=== PATIENT | male | born 1945 | race Caucasian/White ===

== ENCOUNTER → 2024-02-22 10:45 | Outpatient (REF) | payer MEDICARE, BC, SELFPAY | LOC: RCS 10:45 | PROVIDERS: ATTENDING PHYSICIAN Internal Medicine Cardiovascular Disease; FAMILY PHYSICIAN Family Medicine | DX: I50.22 Chronic systolic (congestive) heart failure (principal); I48.91 Unspecified atrial fibrillation | CPT/HCPCS: 93225; 93226; 93306 ==

== ENCOUNTER → 2024-04-24 10:00 | Outpatient (REF) | payer MEDICARE, BC, SELFPAY ==
[2024-04-24 10:58] LABS: Blood Urea Nitrogen 36 mg/dl (9-20); Calcium 9.7 mg/dl (8.4-10.2); Carbon Dioxide 25 mmol/L (22-30); Chloride 107 mmol/L (98-107); Glucose 89 mg/dl (70-99); Potassium 5.2 mmol/L (3.5-5.1); Sodium 143 mmol/L (135-145); eGFR > 60.00
[2024-04-24 11:06] LABS: NT-proBNP 2710 pg/ml
== END ==
LOC: REG 10:00
PROVIDERS: ATTENDING PHYSICIAN Internal Medicine Cardiovascular Disease; FAMILY PHYSICIAN Family Medicine
DX: I50.32 Chronic diastolic (congestive) heart failure (principal)
CPT/HCPCS: 36415; 80048; 83880

== ENCOUNTER → 2024-09-05 10:25 | Outpatient (REF) | payer MEDICARE, BC, SELFPAY ==
[2024-09-05 13:05] LABS: Blood Urea Nitrogen 29 mg/dl (9-20); Calcium 9.5 mg/dl (8.4-10.2); Carbon Dioxide 30 mmol/L (22-30); Chloride 102 mmol/L (98-107); Glucose 88 mg/dl (70-99); Potassium 5.4 mmol/L (3.5-5.1); Sodium 141 mmol/L (135-145); eGFR > 60.00
== END ==
LOC: REG 10:25
PROVIDERS: ATTENDING PHYSICIAN Internal Medicine Cardiovascular Disease; FAMILY PHYSICIAN Family Medicine
DX: I50.22 Chronic systolic (congestive) heart failure (principal)
CPT/HCPCS: 36415; 80048

== ENCOUNTER 2024-09-28 08:38 | Emergency (ER) | payer MEDICARE, BC, SELFPAY ==
[2024-09-28 08:41] VITALS: BP 150/69
[2024-09-28 09:06] LABS: Hematocrit 48.2 % (39.0-52.0); Hemoglobin 15.7 g/dL (13.0-18.0); Mean Corp Hgb Conc. 32.6 g/dL (33.0-37.0); Mean Corpuscular Volume 95.1 fL (80.0-94.0); Mean Platelet Volume 11.1 fL (7.4-10.4); Platelet Count 129 10^3/uL (130-400); Red Blood Cell Count 5.07 10^6/uL (4.70-6.10); Red Cell Dist. Width 13.7 % (11.5-14.5); White Blood Cell Count 4.7 10^3/uL (4.8-10.8)
[2024-09-28 09:22] LABS: ALT (SGPT) 45 U/L (0-50); AST (SGOT) 46 U/L (17-59); Albumin 4.3 g/dl (3.5-5.0); Alkaline Phosphatase 98 U/L (38-126); Blood Urea Nitrogen 24 mg/dl (9-20); Carbon Dioxide 26 mmol/L (22-30); Chloride 104 mmol/L (98-107); Glucose 103 mg/dl (70-99); Potassium 4.6 mmol/L (3.5-5.1); Sodium 139 mmol/L (135-145); Total Bilirubin 0.8 mg/dl (0.2-1.3); eGFR > 60.00
[2024-09-28 09:24] LABS: NT-proBNP 1380 pg/ml
[2024-09-28 09:27] LABS: % Basophils 1.3 % (0-2); % Eosinophils 6.4 % (0-6); % Immature Granulocytes 0.2 % (0-0.5); % Lymphocytes 50.9 % (20.5-51.1); % Monocytes 12.4 % (1.7-9.3); % Neutrophils 28.8 % (42.2-75.2); Absolute Basophils 0.1 10^3/uL (0-0.2); Absolute Eosinophils 0.3 10^3/uL (0-0.7); Absolute Lymphocytes 2.4 10^3/uL (1.2-3.4); Absolute Monocytes 0.6 10^3/uL (0.1-0.6); Absolute Neutrophils 1.4 10^3/uL (1.4-6.5); Nucleated Red Blood Cells % 0 % (-)
[2024-09-28 09:28] LABS: COVID-19 Antigen Negative (Negative)
--- NOTE | 2024-09-28 10:03 | ED.GENMED ---
History of Present Illness
General
Chief Complaint: Cold/Flu/URI Symptoms
Source: patient and spouse
Exam Limitations: none
Time Seen by Provider: 09/28/24 09:17
Nursing documentation reviewed up to this point in time: agreed with
History of Present Illness
History of Present Illness:
79-year-old male with history of A-fib, CHF, HTN, hypothyroid, cardiac stent in 2019 is here for cough, intermittent shortness of breath, sinus congestion, diarrhea 3 days ago but this has subsided as he is taking a probiotic, fever and chills 2
days ago, these have subsided. All symptoms started after attending his grandson's birthday republic[employer] where 5 people had the flu. He denies chest pain or abdominal pain.
Past History
Past History
ED Past Medical History: Arrthythmia (Atrial fibrillation) and CAD
ED Past Surgical History: Cardiac (Cardiac stent 2019)
Social History
Tobacco: Non-smoker
Personal:
Living: with family
Employment: Retired
Family History
Family History: Other (Noncontributory)
Review of Systems
Review of Systems
Allergies reviewed?: Yes
All Other Systems: ROS reviewed and negative except as documented in HPI and ROS
Constitutional: Reports fever (2 days ago, none today or yesterday)
EENT: Reports other (Sinus stuffiness); Denies sore throat
Respiratory: Reports cough and trouble breathing (Intermittently feels short of breath when he is trying to cough stuff up)
Cardiac: Denies chest pain
ABD/GI: Denies abdominal pain, nausea, vomiting or diarrhea (Diarrhea 3 days ago, none since)
: Denies dysuria or difficulty voiding
Musculoskeletal: Reports no symptoms
Skin: Reports no symptoms
Neurological: Reports no symptoms
Phy Exam
Physical Exam
Physical Exam:
GENERAL: No acute distress. A&Ox3.
CONSTITUTIONAL: Afebrile.
EYES: clear, conjunctivae normal
ENMT: moist mucus membranes, Pharynx nl
RESPIRATORY: Regular respirations, nonlabored, lungs clear.
CARDIOVASCULAR: Regular rate and rhythm, no murmurs, no rubs.
GI: Soft, nontender, normal BS
MUSCULOSKELETAL: Moves with ease. Well perfused.
SKIN: Warm, dry, pink
PSYCH: Normal mood and affect. Well kept, interactive and appropriate
NEUROLOGIC: Awake, alert and oriented. No focal neurological deficits
Course
Orders/Labs/Results
Orders:
Orders
09/28/24 08:48
CMP [Comprehensive Metabolic Panel] Urgent
COVID-19 Antigen Urgent
Source: Nasal Swab
Complete Blood Count/With Diff Urgent
NT-proBNP Urgent
Influenza A+B Rapid Molecular Urgent
NIDIA Source: Nasal Swab
Specimen Description:
09/28/24 10:02
CR Chest - 2 Views Urgent
Comment:
Reason For Exam: Cough, flu positive, hx chf, mi
Abnormal Lab Results
09/28/24
08:48
WBC 4.7 L 10^3/uL
(4.8-10.8)
MCV 95.1 H fL
(80.0-94.0)
MCHC 32.6 L g/dL
(33.0-37.0)
Plt Count 129 L 10^3/uL
(130-400)
MPV 11.1 H fL
(7.4-10.4)
Neutrophils % 28.8 L %
(42.2-75.2)
Monocytes % 12.4 H %
(1.7-9.3)
Eosinophils % 6.4 H %
(0-6)
BUN 24 H mg/dl
(9-20)
Glucose 103 H mg/dl
(70-99)
09/28/24 08:48
09/28/24 08:48
Vital Signs
Initial and Last Documented VS:
Initial Vital Signs
Temp Pulse Resp BP Pulse Ox
98.1 F 85 16 150/69 99
09/28/24 08:41 09/28/24 08:41 09/28/24 08:41 09/28/24 08:41 09/28/24 08:41
Last Documented Vital Signs
Temp Pulse Resp BP Pulse Ox
98.1 F 85 16 150/69 99
09/28/24 08:41 09/28/24 08:41 09/28/24 08:41 09/28/24 08:41 09/28/24 08:41
MDM/Problems Addressed
Differential Diagnosis Includes:
Covid, Flu, PNA, CHF
MDM/Problems Addressed:
79-year-old male with history of A-fib, CHF, HTN, hypothyroid, cardiac stent in 2019 is here for cough, intermittent shortness of breath, sinus congestion, diarrhea 3 days ago but this has subsided as he is taking a probiotic, fever and chills 2
days ago, these have subsided. All symptoms started after attending his grandson's birthday republic[employer] where 5 people had the flu. He denies chest pain
Afebrile, NAD
CBC, CMP unremarkable.
BNP 1380
Covid neg
Flu A positive
Out of window for Tamiflu
CXR:NAD
Pt os totally non toxic appearing, pleasant, talkative.
Stable for discharge
*Critical Care Note
Total Time (30-74mins, 75-104mins- exclusive of procedures): Not Applicable
ED Attending Note
-
Portions of this chart may have been created with voice recognition software.� Occasional wrong word or��sound alike� substitutions may have occurred due to the inherent limitations of voice recognition software.
Discharge Plan
Departure
Patient Disposition: Home (Routine Discharge)
Date of Disposition: 09/28/24
Time of Disposition: 10:20
Patient with high blood pressure during this ER visit?: No
Condition: Good
Covid-19: Negative COVID-19
Discharge Problem:
Influenza A
Instructions: Kaleaividaesin, Flu in adults - ED discharge instructions
Prescriptions:
No Action
atorvastatin 80 mg Tablet
80 mg PO DAILY
tramadol 50 mg Tablet
50 mg PO Q8H PRN (Reason: back pain)
levothyroxine 150 mcg Tablet
150 mcg PO DAILY
dabigatran etexilate [Pradaxa] 150 mg Capsule
150 mg PO BID
metoprolol succinate 25 mg Tablet Extended Release 24 Hr
12.5 mg PO DAILY
spironolactone 25 mg Tablet
25 mg PO DAILY 30 Days Qty: 30 0RF
Farxiga 10 mg Tablet
10 mg PO DAILY 30 Days Qty: 30 0RF
furosemide 40 mg Tablet
40 mg PO DAILY 30 Days Qty: 30 0RF
lisinopril 10 mg tablet
10 mg PO DAILY 30 Days Qty: 30 0RF
Referrals:
Rashad Infante, DO [Family Provider] - As needed
Activity Restrictions/Additional Instructions:
As we discussed, your workup here today shows that you have the flu A.
There is no sign of a heart attack or congestive heart failure.
You may try Mucinex for your chest congestion.
Interventions
Interventions:
*Risk Screen - Suicide Last Done: 09/28/24 08:41
*Neglect/Abuse Screening Last Done: 09/28/24 08:41
*Nursing Disposition Last Done: 09/28/24 11:29
Discharge Date and Time
Discharge Date/Time: 09/28/24 10:30
Print Language: YI
== END 2024-09-28 10:30 | disposition home or self-care (01) ==
LOC: EMR 08:38
PROVIDERS: EMERGENCY PHYSICIAN Emergency Medicine; FAMILY PHYSICIAN Family Medicine; REFERRING PHYSICIAN Internal Medicine Cardiovascular Disease
DX: J10.1 Influenza due to other identified influenza virus with other respiratory manifestations (principal); I48.91 Unspecified atrial fibrillation; I25.10 Atherosclerotic heart disease of native coronary artery without angina pectoris; E03.9 Hypothyroidism, unspecified; I11.0 Hypertensive heart disease with heart failure; I50.9 Heart failure, unspecified; I25.2 Old myocardial infarction; Z95.5 Presence of coronary angioplasty implant and graft
CPT/HCPCS: 99283; 71046; 80053; 83880; 85025; 87502; 87811

== ENCOUNTER → 2024-12-25 08:53 | Outpatient (REF) | payer MEDICARE, BC, SELFPAY ==
[2024-12-25 10:54] LABS: Blood Urea Nitrogen 35 mg/dl (9-20); Carbon Dioxide 27 mmol/L (22-30); Chloride 106 mmol/L (98-107); Glucose 91 mg/dl (70-99); Potassium 5.8 mmol/L (3.5-5.1); Sodium 143 mmol/L (135-145); eGFR 51.77
== END ==
LOC: REG 08:53
PROVIDERS: ATTENDING PHYSICIAN Internal Medicine Cardiovascular Disease
DX: E78.2 Mixed hyperlipidemia (principal)
CPT/HCPCS: 36415; 80048

== ENCOUNTER → 2025-02-03 09:56 | Outpatient (REF) | payer MEDICARE, BC, SELFPAY ==
[2025-02-03 11:27] LABS: Blood Urea Nitrogen 35 mg/dl (9-20); Calcium 9.6 mg/dl (8.4-10.2); Carbon Dioxide 26 mmol/L (22-30); Chloride 110 mmol/L (98-107); Glucose 87 mg/dl (70-99); Potassium 5.5 mmol/L (3.5-5.1); Sodium 144 mmol/L (135-145); eGFR > 60.00
== END ==
LOC: REG 09:56
PROVIDERS: ATTENDING PHYSICIAN Internal Medicine Cardiovascular Disease; FAMILY PHYSICIAN Family Medicine
DX: I50.22 Chronic systolic (congestive) heart failure (principal)
CPT/HCPCS: 36415; 80048

== ENCOUNTER 2025-02-16 08:01 | Emergency (ER) | payer MEDICARE, BC, SELFPAY ==
[2025-02-16 08:07] VITALS: BP 126/64
[2025-02-16 08:39] VITALS: BP 111/49
--- NOTE | 2025-02-16 08:57 | ED.GENMED ---
History of Present Illness
General
Chief Complaint: Blood Pressure Problem
Source: patient and spouse
Exam Limitations: none
Time Seen by Provider: 02/16/25 08:23
Nursing documentation reviewed up to this point in time: agreed with
History of Present Illness
History of Present Illness:
The patient is a 80-year-old male with a past medical history significant for a myocardial infarction approximately five years ago and heart failure about two years ago, presenting with reported elevated blood pressure readings this a.m. prior to
taking his BP meds. The patient reports his usual morning blood pressure is in the 120s/70s. However, on waking this morning, his reading was 140/70, later increasing to 190/70's. He reports no chest pain, no shortness of breath, nausea, vomiting,
or changes in bowel habits. The patient describes feeling generally unwell but without specific symptoms such as headache or vision changes. He feels tired but better now compared to earlier. The patient takes blood pressure measurements daily
before medication. He denies recent medication changes except for reduction in spironolactone to 12.5 mg daily. The patient follows a low-sodium, low-potassium diet.
Meds:
- Atorvastatin 80 mg daily
- Dabigatran 150 mg twice a day
- Furosemide 40 mg daily
- Dapagliflozin 10 mg daily
- Levothyroxine 137 mcg daily
- Metoprolol 25 mg daily
- Spironolactone 12.5 mg daily
- Aspirin 81 mg daily
- Sacubitril/valsartan 49-51 mg twice a day
- Multivitamin daily
Past History
Past History
ED Past Medical History: Arrthythmia (Atrial fibrillation), CAD and TN
ED Past Surgical History: Cardiac (Cardiac stent 2020)
Social History
Tobacco: Non-smoker
Alcohol: Occasional
Personal:
Living: with family
Employment: Retired
Family History
Family History: Other (Noncontributory)
Review of Systems
Review of Systems
Allergies reviewed?: Yes
All Other Systems: ROS reviewed and negative except as documented in HPI and ROS
Constitutional: Reports fatigue; Denies fever
Respiratory: Denies trouble breathing
Cardiac: Denies chest pain, diaphoresis or palpitations
ABD/GI: Denies abdominal pain, nausea, vomiting, diarrhea, constipated or anorexia
: Denies dysuria, frequency or difficulty voiding
Musculoskeletal: Reports no symptoms
Skin: Reports no symptoms
Neurological: Reports no symptoms
Phy Exam
Physical Exam
Physical Exam:
GENERAL: No acute distress. A&Ox3.
CONSTITUTIONAL: Afebrile.
EYES: clear, conjunctivae normal
ENMT: moist mucus membranes, Pharynx nl
RESPIRATORY: Regular respirations, nonlabored, lungs clear.
CARDIOVASCULAR: Regular rate and rhythm, no murmurs, no rubs.
GI: Soft, nontender, normal BS
MUSCULOSKELETAL: Moves with ease. Well perfused.
SKIN: Warm, dry, pink
PSYCH: Normal mood and affect. Well kept, interactive and appropriate
NEUROLOGIC: Awake, alert and oriented. No focal neurological deficits
Course
Orders/Labs/Results
Orders:
Orders
02/16/25 09:01
Electrocardiogram (*1) Urgent
Reason for Study: Fatigue / Weakness
EKG- Treatment ONCE
02/16/25 09:26
Complete Blood Count/With Diff Urgent
Comprehensive Metabolic Panel Urgent
Troponin I Urgent
Abnormal Lab Results
02/16/25
09:26
RBC 4.28 L 10^6/uL
(4.70-6.10)
MCV 96.7 H fL
(80.0-94.0)
MCH 32.2 H pg
(27.0-31.0)
Plt Count 129 L 10^3/uL
(130-400)
MPV 11.4 H fL
(7.4-10.4)
Absolute Lymphs (auto) 1.0 L 10^3/uL
(1.2-3.4)
Absolute Monos (auto) 0.7 H 10^3/uL
(0.1-0.6)
Lymphocytes % 17.1 L %
(20.5-51.1)
Monocytes % 10.8 H %
(1.7-9.3)
Chloride 109 H mmol/L
(98-107)
BUN 25 H mg/dl
(9-20)
Total Protein 6.2 L g/dl
(6.3-8.2)
02/16/25 09:26
02/16/25 09:26
Vital Signs
Initial and Last Documented VS:
Initial Vital Signs
Temp Pulse Resp BP Pulse Ox
98.5 F 74 18 126/64 96
02/16/25 08:07 02/16/25 08:07 02/16/25 08:07 02/16/25 08:07 02/16/25 08:07
Last Documented Vital Signs
Temp Pulse Resp BP Pulse Ox
98.5 F 74 18 104/47 95
02/16/25 08:07 02/16/25 08:07 02/16/25 08:07 02/16/25 11:00 02/16/25 11:30
MDM/Problems Addressed
Differential Diagnosis Includes:
The Differential Diagnosis includes, in no particular order and is not limited to:
- Hypertensive urgency
- Anxiety-induced elevation
- Dehydration
- Electrolyte imbalance
- Medication side effects
- Anemia
- Viral illness
- Cardiovascular event (myocardial infarction, angina)
MDM/Problems Addressed:
The patient is a 80-year-old male with a past medical history significant for a myocardial infarction approximately five years ago and heart failure about two years ago, presenting with reported elevated blood pressure readings this a.m. prior to
taking his BP meds. The patient reports his usual morning blood pressure is in the 120s/70s. However, on waking this morning, his reading was 140/70, later increasing to 190/70's. He reports no chest pain, no shortness of breath, nausea, vomiting,
or changes in bowel habits. The patient describes feeling generally unwell but without specific symptoms such as headache or vision changes. He feels tired but better now compared to earlier. The patient takes blood pressure measurements daily
before medication. He denies recent medication changes except for reduction in spironolactone to 12.5 mg daily. The patient follows a low-sodium, low-potassium diet.
Pt states he had no chest pain with his last TN. He did have SOB.
Denies any new medications
BP has normalized, NAD.
EKG a fib with slow ventricular response, HR 55
Plan includes obtaining basic blood work to check electrolytes, hemoglobin, and white blood cell count to investigate for possible anemia, infection, or dehydration. Will check EKG, Troponin to r/o TN, The patient is advised to continue monitoring
blood pressure at home and report any concerning changes. Per , anxiety considered a potential contributor to symptoms as he is scheduled to go to the of a good friend today.
10:15 a.m.
CBC with no clinically significant abnormality
Troponin WNL
CMP unremarkable
Pt stable for discharge. BP normal
Chronic conditions affecting care: HTN, CAD and Arrhythmia
*Pulse Oximetry
SaO2: 98
Oxygen Mode of Delivery: Room air
Patient hypoxic: no
*EKG
EKG Intrepretation Date: 02/16/25
Interpretation: abnormal
Heart Rate: 55
Rhythm: a-fib (with slow ventricular response)
[place]: normal axis
QRS Pattern: normal QRS
Ischemia: no ischemia
*Critical Care Note
Total Time (30-74mins, 75-104mins- exclusive of procedures): Not Applicable
ED Attending Note
-
Portions of this chart may have been created with voice recognition software.� Occasional wrong word or��sound alike� substitutions may have occurred due to the inherent limitations of voice recognition software.
Discharge Plan
Departure
Patient Disposition: Home (Routine Discharge)
Date of Disposition: 02/16/25
Time of Disposition: 11:40
Patient with high blood pressure during this ER visit?: No
Condition: Good
Discharge Problem:
Episode of hypertension
Prescriptions:
No Action
atorvastatin 80 mg Tablet
80 mg PO DAILY
tramadol 50 mg Tablet
50 mg PO Q8H PRN (Reason: back pain)
levothyroxine 150 mcg Tablet
150 mcg PO DAILY
dabigatran etexilate [Pradaxa] 150 mg Capsule
150 mg PO BID
metoprolol succinate 25 mg Tablet Extended Release 24 Hr
12.5 mg PO DAILY
spironolactone 25 mg Tablet
25 mg PO DAILY 30 Days Qty: 30 0RF
Farxiga 10 mg Tablet
10 mg PO DAILY 30 Days Qty: 30 0RF
furosemide 40 mg Tablet
40 mg PO DAILY 30 Days Qty: 30 0RF
lisinopril 10 mg tablet
10 mg PO DAILY 30 Days Qty: 30 0RF
Referrals:
Rashad Infante, DO [Family Provider, Family Practice] - As needed
Activity Restrictions/Additional Instructions:
As we discussed, your workup here today shows nothing worrisome.
See your doctor for recheck if you are not 100% back to feeling normal within the next 2 to 3 days.
Interventions
Interventions:
*Risk Screen - Suicide Last Done: 02/16/25 08:37
*General Assessment Last Done: 02/16/25 08:37
*Neglect/Abuse Screening Last Done: 02/16/25 08:37
*ED- Fall Risk Assessment Last Done: 02/16/25 08:37
*ED COVID-19 Vaccine History Last Done: 02/16/25 08:37
*Nursing Disposition Last Done: 02/16/25 12:03
ED- Cardiac Assessment Last Done: 02/16/25 08:37
ED- Neurological Assessment Last Done: 02/16/25 08:37
ED- Pulmonary Assessment Last Done: 02/16/25 08:37
Discharge Date and Time
Discharge Date/Time: 02/16/25 12:03
Print Language: [id number]
[2025-02-16 09:00] VITALS: BP 98/72
[2025-02-16 10:00] VITALS: BP 121/58
[2025-02-16 10:00] LABS: % Basophils 1.1 % (0-2); % Eosinophils 2.8 % (0-6); % Immature Granulocytes 0.2 % (0-0.5); % Lymphocytes 17.1 % (20.5-51.1); % Monocytes 10.8 % (1.7-9.3); Absolute Basophils 0.1 10^3/uL (0-0.2); Absolute Eosinophils 0.2 10^3/uL (0-0.7); Absolute Monocytes 0.7 10^3/uL (0.1-0.6); Absolute Neutrophils 4.1 10^3/uL (1.4-6.5); Hematocrit 41.4 % (39.0-52.0); Hemoglobin 13.8 g/dL (13.0-18.0); Mean Corp Hgb Conc. 33.3 g/dL (33.0-37.0); Mean Corpuscular Hgb 32.2 pg (27.0-31.0); Mean Corpuscular Volume 96.7 fL (80.0-94.0); Mean Platelet Volume 11.4 fL (7.4-10.4); Nucleated Red Blood Cells % 0 % (-); Platelet Count 129 10^3/uL (130-400); Red Blood Cell Count 4.28 10^6/uL (4.70-6.10); Red Cell Dist. Width 14.3 % (11.5-14.5); White Blood Cell Count 6.1 10^3/uL (4.8-10.8)
[2025-02-16 10:06] LABS: Troponin I < 0.012 ng/ml
[2025-02-16 11:00] VITALS: BP 104/47
[2025-02-16 11:00] LABS: ALT (SGPT) 28 U/L (0-50); AST (SGOT) 26 U/L (17-59); Albumin 3.8 g/dl (3.5-5.0); Alkaline Phosphatase 68 U/L (38-126); Blood Urea Nitrogen 25 mg/dl (9-20); Calcium 9.1 mg/dl (8.4-10.2); Carbon Dioxide 25 mmol/L (22-30); Chloride 109 mmol/L (98-107); Glucose 91 mg/dl (70-99); Potassium 4.2 mmol/L (3.5-5.1); Sodium 141 mmol/L (135-145); Total Bilirubin 0.9 mg/dl (0.2-1.3); Total Protein 6.2 g/dl (6.3-8.2); eGFR > 60.00
== END 2025-02-16 12:03 | disposition home or self-care (01) ==
LOC: EMR 08:01
PROVIDERS: Registered Nurse; EMERGENCY PHYSICIAN Emergency Medicine; FAMILY PHYSICIAN Family Medicine
DX: I11.0 Hypertensive heart disease with heart failure (principal); I48.91 Unspecified atrial fibrillation; I25.10 Atherosclerotic heart disease of native coronary artery without angina pectoris; I25.2 Old myocardial infarction; I50.9 Heart failure, unspecified; Z79.02 Long term (current) use of antithrombotics/antiplatelets; Z79.82 Long term (current) use of aspirin; Z79.84 Long term (current) use of oral hypoglycemic drugs; Z79.890 Hormone replacement therapy; Z79.899 Other long term (current) drug therapy; Z95.5 Presence of coronary angioplasty implant and graft
CPT/HCPCS: 99283; 80053; 84484; 85025; 93005

== ENCOUNTER → 2025-04-08 08:52 | Outpatient (REF) | payer MEDICARE, BC, SELFPAY | LOC: RCS 08:52 | PROVIDERS: ATTENDING PHYSICIAN Internal Medicine Cardiovascular Disease; FAMILY PHYSICIAN Family Medicine | DX: I25.10 Atherosclerotic heart disease of native coronary artery without angina pectoris (principal); I50.32 Chronic diastolic (congestive) heart failure; I34.0 Nonrheumatic mitral (valve) insufficiency | CPT/HCPCS: 93306 ==

== ENCOUNTER → 2025-05-08 08:52 | Outpatient (REF) | payer MEDICARE, BC, SELFPAY ==
[2025-05-08 09:37] LABS: Hematocrit 46.8 % (39.0-52.0); Hemoglobin 15.2 g/dL (13.0-18.0); Mean Corp Hgb Conc. 32.5 g/dL (33.0-37.0); Mean Corpuscular Volume 96.7 fL (80.0-94.0); Nucleated Red Blood Cells % 0 % (-); Platelet Count 158 10^3/uL (130-400); Red Cell Dist. Width 13.6 % (11.5-14.5)
[2025-05-08 10:50] LABS: ALT (SGPT) 44 U/L (0-50); AST (SGOT) 40 U/L (17-59); Albumin 4.6 g/dl (3.5-5.0); Alkaline Phosphatase 70 U/L (38-126); Blood Urea Nitrogen 32 mg/dl (9-20); Calcium 9.8 mg/dl (8.4-10.2); Carbon Dioxide 27 mmol/L (22-30); Chloride 109 mmol/L (98-107); Glucose 103 mg/dl (70-99); HDL Cholesterol 55 mg/dl; LDL Cholesterol, Calculated 77 mg/dl; Potassium 6.1 mmol/L (3.5-5.1); Sodium 142 mmol/L (135-145); Total Protein 7.3 g/dl (6.3-8.2); Very Low Density Lipoprotein 13 mg/dl (0-30); eGFR > 60.00
== END ==
LOC: REG 08:52
PROVIDERS: ATTENDING PHYSICIAN Internal Medicine Cardiovascular Disease; FAMILY PHYSICIAN Family Medicine; OTHER PHYSICIAN Nurse Practitioner
DX: E78.2 Mixed hyperlipidemia (principal); I25.10 Atherosclerotic heart disease of native coronary artery without angina pectoris; I34.0 Nonrheumatic mitral (valve) insufficiency; I50.32 Chronic diastolic (congestive) heart failure
CPT/HCPCS: 36415; 80053; 80061; 85025

== ENCOUNTER → 2025-05-11 06:31 | Outpatient (REF) | payer MEDICARE, BC, SELFPAY ==
[2025-05-11 09:47] LABS: Blood Urea Nitrogen 34 mg/dl (9-20); Calcium 10.4 mg/dl (8.4-10.2); Carbon Dioxide 26 mmol/L (22-30); Chloride 108 mmol/L (98-107); Glucose 88 mg/dl (70-99); Potassium 6.2 mmol/L (3.5-5.1); Sodium 144 mmol/L (135-145); eGFR > 60.00
== END ==
LOC: RAD 06:31
PROVIDERS: ATTENDING PHYSICIAN Orthopaedic Surgery; FAMILY PHYSICIAN Family Medicine; REFERRING PHYSICIAN Internal Medicine Cardiovascular Disease
DX: I72.9 Aneurysm of unspecified site (principal); I50.22 Chronic systolic (congestive) heart failure; E87.5 Hyperkalemia
CPT/HCPCS: 36415; 76770; 80048

== ENCOUNTER → 2025-05-18 08:47 | Outpatient (REF) | payer MEDICARE, BC, SELFPAY ==
[2025-05-18 10:12] LABS: Blood Urea Nitrogen 25 mg/dl (9-20); Calcium 8.8 mg/dl (8.4-10.2); Carbon Dioxide 29 mmol/L (22-30); Chloride 104 mmol/L (98-107); Glucose 93 mg/dl (70-99); Potassium 3.3 mmol/L (3.5-5.1); Sodium 142 mmol/L (135-145); eGFR > 60.00
[2025-05-18 10:29] LABS: Cortisol, Random 14.8 ug/dl
== END ==
LOC: REG 08:47
PROVIDERS: ATTENDING PHYSICIAN Internal Medicine Cardiovascular Disease; FAMILY PHYSICIAN Family Medicine; REFERRING PHYSICIAN Surgery Vascular Surgery
DX: I50.22 Chronic systolic (congestive) heart failure (principal); E87.5 Hyperkalemia; I71.40 Abdominal aortic aneurysm, without rupture, unspecified
CPT/HCPCS: 36415; 80048; 82088; 82533; 84244

== ENCOUNTER → 2025-05-20 07:31 | Outpatient (REF) | payer MEDICARE, BC, SELFPAY | LOC: RAD 07:31 | PROVIDERS: ATTENDING PHYSICIAN Surgery Vascular Surgery; FAMILY PHYSICIAN Family Medicine; REFERRING PHYSICIAN Internal Medicine Cardiovascular Disease | DX: I71.40 Abdominal aortic aneurysm, without rupture, unspecified (principal) | CPT/HCPCS: 74174; Q9967 ==

== ENCOUNTER → 2025-05-25 11:05 | Outpatient (REF) | payer MEDICARE, BC, SELFPAY ==
[2025-05-25 12:29] LABS: Blood Urea Nitrogen 20 mg/dl (9-20); Calcium 9.7 mg/dl (8.4-10.2); Carbon Dioxide 33 mmol/L (22-30); Chloride 104 mmol/L (98-107); Glucose 91 mg/dl (70-99); Potassium 4.2 mmol/L (3.5-5.1); Sodium 145 mmol/L (135-145); eGFR > 60.00
[2025-05-25 13:11] LABS: Cortisol, Random 9.9 ug/dl
[2025-05-28 08:07] LABS: Aldosterone/Renin Activ Ratio 17.2 ratio (<=25.0); Renin Activity Results 0.3 ng/mL/hr
== END ==
LOC: REG 11:05
PROVIDERS: ATTENDING PHYSICIAN Internal Medicine Cardiovascular Disease; FAMILY PHYSICIAN Family Medicine
DX: I50.22 Chronic systolic (congestive) heart failure (principal); E87.5 Hyperkalemia; I50.32 Chronic diastolic (congestive) heart failure
CPT/HCPCS: 36415; 80048; 82088; 82533; 84244

== ENCOUNTER → 2025-06-01 08:57 | Outpatient (REF) | payer MEDICARE, BC, SELFPAY ==
[2025-06-01 11:07] LABS: Albumin 4.4 g/dl (3.5-5.0); Blood Urea Nitrogen 23 mg/dl (9-20); Calcium 9.7 mg/dl (8.4-10.2); Carbon Dioxide 33 mmol/L (22-30); Chloride 104 mmol/L (98-107); Glucose 91 mg/dl (70-99); Potassium 4.8 mmol/L (3.5-5.1); Sodium 145 mmol/L (135-145); eGFR > 60.00
== END ==
LOC: REG 08:57
PROVIDERS: ATTENDING PHYSICIAN Internal Medicine Cardiovascular Disease; FAMILY PHYSICIAN Family Medicine; REFERRING PHYSICIAN Internal Medicine
DX: I50.22 Chronic systolic (congestive) heart failure (principal); E87.5 Hyperkalemia; I10 Essential (primary) hypertension
CPT/HCPCS: 36415; 80069; 82570; 83930; 83935; 84133; 84156

== ENCOUNTER → 2025-06-08 11:57 | Outpatient (REF) | payer MEDICARE, BC, SELFPAY ==
[2025-06-08 13:58] LABS: Blood Urea Nitrogen 25 mg/dl (9-20); Calcium 9.5 mg/dl (8.4-10.2); Carbon Dioxide 29 mmol/L (22-30); Chloride 103 mmol/L (98-107); Glucose 103 mg/dl (70-99); Potassium 4.5 mmol/L (3.5-5.1); Sodium 140 mmol/L (135-145); eGFR > 60.00
== END ==
LOC: REG 11:57
PROVIDERS: ATTENDING PHYSICIAN Internal Medicine Cardiovascular Disease; FAMILY PHYSICIAN Family Medicine
DX: I50.22 Chronic systolic (congestive) heart failure (principal); E87.5 Hyperkalemia
CPT/HCPCS: 36415; 80048

== ENCOUNTER → 2025-07-13 09:13 | Outpatient (REF) | payer MEDICARE, BC, SELFPAY ==
[2025-07-13 12:12] LABS: Albumin 4.2 g/dl (3.5-5.0); Blood Urea Nitrogen 22 mg/dl (9-20); Calcium 9.1 mg/dl (8.4-10.2); Carbon Dioxide 32 mmol/L (22-30); Chloride 102 mmol/L (98-107); Glucose 92 mg/dl (70-99); Potassium 4.0 mmol/L (3.5-5.1); Sodium 139 mmol/L (135-145); eGFR > 60.00
== END ==
LOC: REG 09:13
PROVIDERS: ATTENDING PHYSICIAN Internal Medicine; FAMILY PHYSICIAN Family Medicine
DX: I10 Essential (primary) hypertension (principal); E78.2 Mixed hyperlipidemia; E87.5 Hyperkalemia
CPT/HCPCS: 36415; 80069

== ENCOUNTER → 2025-07-14 15:28 | Outpatient (REF) | payer MEDICARE, BC, SELFPAY | LOC: REG 15:28 | DX: R06.2 Wheezing (principal) | CPT/HCPCS: 71046 ==

== ENCOUNTER → 2025-07-27 09:41 | Outpatient (REF) | payer MEDICARE, BC, SELFPAY ==
[2025-07-27 10:55] LABS: Hematocrit 42.1 % (39.0-52.0); Hemoglobin 13.5 g/dL (13.0-18.0); Mean Corp Hgb Conc. 32.1 g/dL (33.0-37.0); Mean Corpuscular Volume 95.5 fL (80.0-94.0); Nucleated Red Blood Cells % 0 % (-); Platelet Count 173 10^3/uL (130-400); Red Cell Dist. Width 13.8 % (11.5-14.5)
[2025-07-27 11:55] LABS: HDL Cholesterol 47 mg/dl; LDL Cholesterol, Calculated 53 mg/dl; Very Low Density Lipoprotein 9 mg/dl (0-30)
[2025-07-27 12:04] LABS: TSH 32.50 uIU/ml (0.47-4.68)
== END ==
LOC: REG 09:41
PROVIDERS: ATTENDING PHYSICIAN Family Medicine
DX: E03.9 Hypothyroidism, unspecified (principal); E78.5 Hyperlipidemia, unspecified
CPT/HCPCS: 36415; 80061; 84439; 84443; 85025